=== PATIENT | male | born 1980 | race Caucasian/White ===

== ENCOUNTER 2017-11-01 23:04 | Emergency (ER) | payer OTHER ==
[~2017-11-01] VITALS: Ht 177.8 cm; Wt 92.1 kg
[2017-11-02] MEDS ORDERED: PERCOCET 5/31 TABLET PO (00:34)
[2017-11-02] MEDS ORDERED: BACTRIM,SEPT1 TABLET PO (00:41)
[2017-11-02 01:58] VITALS: BP 150/98
== END 2017-11-02 02:00 | disposition home or self-care (01) ==
LOC: EME 23:04
PROC: 2W3MX1Z Immobilization of Left Lower Extremity using Splint (ICD-10-PCS; principal; 2017-11-02)
DX: M79.672 Pain in left foot (principal); R60.0 Localized edema; Z88.1 Allergy status to other antibiotic agents
CPT/HCPCS: 73630; 99281; 99284